=== PATIENT | female | born 1935 | race Caucasian/White ===

== ENCOUNTER → 2016-06-28 | Outpatient (CLI) | payer MEDICARE, BC ==
--- NOTE | ~2016-06-28 | CT3 ---
[facility] A Service of [facility] RADIOLOGY TEXT RESULTS PATIENT: EMMANUEL PUTNAM LOCATION: [facility] : 35 UNIT #: [id number] AGE: [address]: Ricardo Mishra MD SEX: F ORDER DR: [id number] [facility] [address] [place], [place] [address] [id number] O MR#: [id number] Acc #: [id number] NAME: EMMANUEL PUTNAM : 1935 SEX: F STUDY DATE/TIME: 06/28/2016 14:46 UNIT: [facility] ROOM: STUDY DESCRIPTION: CT Abd and Pelv WWo Cont Attending Physician: Ricardo Mishra M.D. Referring Physician: Ricardo Mishra M.D. Ordering Physician: Ricardo Mishra M.D. Primary Care Physician: Ricardo Mishra M.D. MEDICAL IMAGING REPORT This report is preliminary unless electronic signature is present EXAM CT abdomen without contrast, CT abdomen and pelvis with contrast 06/28/2016 INDICATIONS History of breast cancer. Elevated liver enzyme levels. Observation for metastatic disease. PROCEDURE Unenhanced CT of the abdomen. Postcontrast CT of the abdomen and pelvis multiphase acquisition through the abdomen. This CT exam was performed with one or more of the following radiation dose reduction techniques: automatic exposure control, adjustment of mA and/or kV according to patient size, and iterative reconstruction. COMPARISON None FINDINGS ABDOMEN WITHOUT CONTRAST: There is linear scarring or atelectasis in the lung bases. Diffuse hepatic steatosis. There is a 3 mm stone in the gallbladder. No radiodense renal calculus. ABDOMEN WITH CONTRAST: Liver enlarged measuring 20.7 cm. 2 cysts or possibly hemangiomas in the liver, 1 in the lateral segment the left lobe measures 8 mm and 1 in segment 4 measures 8 mm. There is a 6 mm early enhancing focus subcapsular segment 6. This is not seen on the more delayed phases. No definitive washout. The spleen, kidneys, adrenal glands and pancreas and are unremarkable. Uncomplicated sigmoid diverticula. The bowel loops are nondilated. STS. [facility] A Service of [facility] RADIOLOGY TEXT RESULTS PATIENT: EMMANUEL PUTNAM LOCATION: [facility] : 35 UNIT #: [id number] AGE: [address]: Ricardo Mishra MD SEX: F ORDER DR: PELVIS WITH CONTRAST: No pelvic mass or fluid. No aggressive appearing bone lesion. IMPRESSION 1. Hepatomegaly with steatosis. This likely explains the patient's elevated liver enzyme levels. 2. 2 cysts or possibly hemangiomas in the liver detailed above. 3. Nonspecific 6 mm early enhancing focus in subcapsular segment 6. It is indeterminate but a benign process such as a small flash filling hemangioma or possibly small FNH is favored. This can be followed to document stability. 4. No evidence for metastatic disease elsewhere in the abdomen or pelvis. Dictated by... Rogerio Billy M.D. THIS IS AN ELECTRONICALLY VERIFIED REPORT Rogerio Billy M.D. at 07/01/2016 7:14 AM Janet TD: 06/29/2016 13:59 JOB #: [id number] MEDICAL IMAGING REPORT Page 1 of 1 COPY
[2016-06-28 13:45] LABS: POC - CREATININE 0.77 mg/dL (0.44-1.03); POC - GFR >60.0 mL/min (>60)
== END | disposition home or self-care (01) ==
LOC: CCAT 13:09
PROVIDERS: Internal Medicine
DX: C50.919 Malignant neoplasm of unspecified site of unspecified female breast (principal); K76.89 Other specified diseases of liver; K76.0 Fatty (change of) liver, not elsewhere classified; R16.0 Hepatomegaly, not elsewhere classified
CPT/HCPCS: 74178; 82565; Q9967

== ENCOUNTER → 2016-09-12 | Outpatient (CLI) | payer MEDICARE, BC ==
--- NOTE | ~2016-09-12 | MY10 ---
[facility] A Service of [facility] RADIOLOGY TEXT RESULTS PATIENT: EMMANUEL PUTNAM LOCATION: [facility] : 35 UNIT #: [id number] AGE: [address]: Bryan Garcia MD SEX: F ORDER DR: [id number] [facility] [address] [place], [place] [address] [id number] O MR#: [id number] Acc #: [id number] NAME: EMMANUEL PUTNAM : 1935 SEX: F STUDY DATE/TIME: 09/12/2016 10:38 UNIT: [facility] ROOM: STUDY DESCRIPTION: MY Mammogram Screen Uni Dig Rt Attending Physician: Bryan Garcia M.D. Referring Physician: Bryan Garcia M.D. Ordering Physician: Bryan Garcia M.D. Primary Care Physician: Ricardo Mishra M.D. MEDICAL IMAGING REPORT This report is preliminary unless electronic signature is present EXAM Unilateral right digital screening mammogram, 09/12/2016, [facility]. HISTORY 81-year-old woman prior left mastectomy 21 years ago. Right breast biopsy and reduction mammoplasty years ago. Annual screen. COMPARISON Mammograms date to 05/11/2006 with most recent 09/17/2015. TECHNIQUE Digital imaging of the right breast was completed utilizing screening protocol. Biopsy skin markers were placed. Review includes FDA-approved CAD device. FINDINGS There are minimal remaining parenchymal opacities in the right breast. These are stable. There is no interval occurring mass or interval occurring microcalcifications. There is no architectural deformity. IMPRESSION Status post left mastectomy. Negative stable right mammogram. Annual screening recommended. Patients over the age of 40 are entered into a reminder system with target due date for the next mammogram. A result letter will also be sent to the patient. BIRADS: 1 Negative [facility] A Service of [facility] RADIOLOGY TEXT RESULTS PATIENT: EMMANUEL PUTNAM LOCATION: [facility] : 35 UNIT #: [id number] AGE: [address]: Bryan Garcia MD SEX: F ORDER DR: Dictated by... Heraclio Wood M.D. THIS IS AN ELECTRONICALLY VERIFIED REPORT Heraclio Wood M.D. at 09/12/2016 3:38 PM NARINDER/troy TD: 09/12/2016 15:06 JOB #: [id number] MEDICAL IMAGING REPORT Page 1 of 1 COPY
== END | disposition home or self-care (01) ==
LOC: CWCC 10:10
DX: Z12.31 Encounter for screening mammogram for malignant neoplasm of breast (principal); Z90.12 Acquired absence of left breast and nipple; Z98.890 Other specified postprocedural states
CPT/HCPCS: G0202